=== PATIENT | female | born 1945 | race Asian ===

== ENCOUNTER → 2017-01-08 | Outpatient (CLI) | payer OTHER, MEDICAID ==
[~2017-01-08] MED LIST: ATEN25 PO; ATEN50TA PO; BENA20TA3 PO; HYDR12.54 PO; LOVA40TA2 PO; WARF2TAB6 PO
== END | disposition home or self-care (01) ==
LOC: RADPV 09:14
PROVIDERS: ATTEND Family Medicine
DX: M48.06 Spinal stenosis, lumbar region (principal); R10.2 Pelvic and perineal pain; M25.551 Pain in right hip; M25.552 Pain in left hip; M54.2 Cervicalgia
CPT/HCPCS: 72040; 72100; 73521